=== PATIENT | male | born 1985 | race Caucasian/White ===

== ENCOUNTER 2022-09-20 00:47 | Emergency (ER) | payer SELFPAY ==
[~2022-09-20] VITALS: Ht 182.9 cm; Wt 78.0 kg
[2022-09-20] MEDS ORDERED: LIDOCAINE HCL/PF 1% 10 MG/ML 5ML VIAL INFIL ONE (02:15)
[2022-09-20] MEDS ORDERED: TETANUS, DIPHTHERIA, PERTUSSIS VAC/PF 0.5ML (>10YR OLD) IM ONE (02:15)
[2022-09-20] MEDS ORDERED: KETOROLAC 30MG/ML VIAL IV ONE (02:15)
[2022-09-20] MEDS ORDERED: BACITRACIN ZINC OINT UDPKT TOP ONE (02:15)
[2022-09-20] MEDS ORDERED: HYDROCODONE/ACETAMINOPHEN 5/325MG TABLET PO ONE (02:15)
[2022-09-20] MEDS ORDERED: BO1 TP (04:21)
[2022-09-20 04:40] VITALS: BP 145/72
== END 2022-09-20 04:49 | disposition home or self-care (01) ==
LOC: ER 00:47
DX: S81.812A Laceration without foreign body, left lower leg, initial encounter (principal); F41.9 Anxiety disorder, unspecified; W26.8XXA Contact with other sharp object(s), not elsewhere classified, initial encounter; Y93.89 Activity, other specified; Y92.89 Other specified places as the place of occurrence of the external cause; Y99.8 Other external cause status
CPT/HCPCS: 12002; 90471; 90715; 96372; 99284; J1885; J3490; Z7610